=== PATIENT | female | born 1965 | race Hispanic/Latino ===

== ENCOUNTER 2018-08-31 08:19 | Day surgery (SDC) | payer BC ==
[2018-08-27 15:11] VITALS: BMI 29.2
[2018-08-31] MEDS ORDERED: Propofol 10 mg/ml Inj (20 ML) ONE (09:39)
[2018-08-31] MEDS ORDERED: Sodium Chloride 0.9% 1,000 ML IV SCH (09:45)
[2018-08-31 11:19] VITALS: BP 137/77; PULSE 61; RESP 16; TEMP 98.2; O2SAT 100
== END 2018-08-31 11:32 | disposition home or self-care (01) ==
LOC: ENDO 08:19
PROVIDERS: ATTEND Internal Medicine Gastroenterology
DX: Z12.11 Encounter for screening for malignant neoplasm of colon (principal); K57.30 Diverticulosis of large intestine without perforation or abscess without bleeding; K64.8 Other hemorrhoids
CPT/HCPCS: 45378; J2001; J2704; J7030; J7040